=== PATIENT | female | born 1945 | race Caucasian/White ===

== ENCOUNTER → 2017-10-28 | Outpatient (CLI) | payer OTHER ==
[2017-10-28 18:12] LABS: CHOLESTEROL 119 mg/dl (0-200); CHOLESTEROL/HDL RATIO 3.8; HDL CHOLESTEROL 31 mg/dl; LDL CHOLESTEROL CALCULATED 49 mg/dl; TRIGLYCERIDES 197 mg/dl (0-150); VERY LOW DENSITY LIPOPROT CALC 39 mg/dl
[2017-10-29 06:12] LABS: ESTIMATED AVERAGE GLUCOSE 111 mg/dl; HA1C FLAG Normal (Normal)
[2017-10-29 06:12] LABS: HEMOGLOBIN A1C 5.5 % (4.5-5.6)
== END | disposition home or self-care (01) ==
LOC: C.LABMFLN 09:02
DX: E78.5 Hyperlipidemia, unspecified (principal); E11.9 Type 2 diabetes mellitus without complications